=== PATIENT | female | born 1965 | race Caucasian/White ===

== ENCOUNTER 2022-05-05 06:04 | Emergency (ER) | payer BC, OTHER ==
[2022-05-05 06:19] VITALS: BP 150/97; PULSE 69; RESP 18; TEMP 97.4; BMI 22.6
== END 2022-05-05 07:46 | disposition home or self-care (01) ==
LOC: JER 06:04
DX: H93.12 Tinnitus, left ear (principal)
CPT/HCPCS: 99282-25